=== PATIENT | female | born 1945 | race Caucasian/White ===

== ENCOUNTER → 2016-08-07 | Outpatient (CLI) | payer OTHER ==
[~2016-08-07] MED LIST: ALBU1AER9 INH; ASPEC325 PO; ATV1 PO; BUDE180I INH; CLB200 PO; EFFSR150 PO; FLUT0.15 NAE; FLUT115A INH; FRS/40 PO; LOSA100T65 PO; MELA1TAB5 PO; NRN300 PO; OXYSR10 PO; POTA10TA PO; PRED10PA3 PO; RANI300T2 PO; RXC5 PO; SYN50 PO; TRAZ100T29 PO
--- NOTE | 2016-08-07 14:08 | MAMMOGRAPHY REPORT ---
BILATERAL DIGITAL SCREENING MAMMOGRAM WITH CAD: 08/07/2016 CLINICAL HISTORY: Routine screening. Patient has no complaints. TECHNIQUE: Bilateral CC and MLO views were obtained. Current study was also evaluated with a Comput er Aided Detection (CAD) system. COMPARISON: Comparison is made to exams dated: 07/27/2015 mammogram, 11/02/2014 mammogram, 08/04/2014 mammogram, and 07/20/2014 mammogram - [facility]. BREAST COMPOSITION: The tissue of both breasts is almost entirely fatty. FINDINGS: There is stable nodularity in the anterior left breast. Benign rim calcifications bilater ally. No suspicious mass, architectural distortion or cluster of microcalcifications is seen. IMPRESSION: ACR BI-RADS CATEGORY 1: NEGATIVE There is no mammographic evidence of malignancy. A 1 year screening mammogram is recommended. The p atient will receive written notification of the results. Approximately 10% of breast cancers are not detected with mammography. A negative mammographic repor t should not delay biopsy if a clinically suggestive mass is present. Anai Squires M.D. ay/:08/07/2016 12:27:12 Agricultural Service Worker: Juana STEELE(Mahesh)(M), [facility] letter sent: Normal 1/2 BI-RADS Code: ACR BI-RADS Category 1: Negative
== END | disposition home or self-care (01) ==
LOC: C.MAMM 09:19
PROVIDERS: ATTEND Internal Medicine
DX: Z12.31 Encounter for screening mammogram for malignant neoplasm of breast (principal)

== ENCOUNTER 2017-03-15 01:42 | Emergency (ER) | payer OTHER ==
[~2017-03-15] VITALS: Ht 160 cm; Wt 80.0 kg
[2017-03-15 01:45] VITALS: TEMP 36.7; Ht 160 cm; Wt 80.0 kg
[2017-03-15 02:45] LABS: BASO % 0.3 %; BASO ABS # 0.02 K/uL (0-0.2); COMPLETE YES; EOS % 3.9 %; HEMATOCRIT 37.1 % (37-47); IG% 0.3 %; LYMPH % 23.3 %; MEAN CELL VOLUME 84.5 fL (80-100); MEAN CORPUSCULAR HEMOGLOBIN 28.2 pg (25-34); MEAN CORPUSCULAR HGB CONC 33.4 g/dl (32-36); MEAN PLATELET VOLUME 8.7 fL (7.4-10.4); MONO % 11.3 %; NEUT % 60.9 %; PLATELET COUNT 251 K/uL (130-400); RED BLOOD COUNT 4.39 M/uL (4.2-5.4); WHITE BLOOD COUNT 7.71 K/uL (4.8-10.8)
[2017-03-15 03:04] LABS: BUN/CREATININE RATIO 29.6 (10-20); CALCIUM 8.5 mg/dl (8.5-10.1); CREATININE 0.64 mg/dl (0.60-1.20); POTASSIUM 3.8 mmol/L (3.5-5.1)
[2017-03-15 03:06] LABS: ALB/GLOB RATIO 0.9 (0.9-2)
[2017-03-15] MEDS ORDERED: SODIUM CHLORIDE 0.9% 1000ML 1,000 ML IV STA (03:21)
[2017-03-15] MEDS ORDERED: KETOROLAC TROMETHAMINE 30 MG/ML VIAL IV STA (03:22)
[2017-03-15 04:50] VITALS: BP 168/90; PULSE 75; O2SAT 96
--- NOTE | 2017-03-15 04:50 | EMERGENCY ROOM VISIT NOTE ---
History Report prepared by Stuart: Elizabeth Szymanski Under the Supervision of: Dr. Anayeli Alejandra D.O. First contact with patient: 01:53 Chief Complaint: FLU LIKE SX Stated Complaint: SORETHROAT,HEADACHE,COUGH,ACHE FROM HEAD TO NECK History of Present Illness The patient is a 71 year old female who presents to the Emergency Room with complaints of worsening sore throat starting 4 days ago. She has been using Chloraseptic spray to no significant relief. The sore throat worsened over the past 4 days and she started having pain with swallowing. She is now coughing a lot. She woke up to go to the bathroom and started coughing more. She took some cough medicine with codeine 1 hour ago which she had from last year. She states that she has cough medicine on hand due to her history of sarcoidosis. She reports chills, headache, and neck pain. She states that she is normally hot and sweaty, but today she felt cold. She denies any fever or abdominal pain. She has leg swelling which is normal for her. 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 She has had pneumonia in the past, but has not had it in the past several years when she started getting the pneumonia shot. The patient used to be on prednisone, but is now on gabapentin. Source of History: patient Onset: 4 days ago Position: throat Quality: other (sore) Timing: worsening Associated Symptoms: + chills, + headache, + cough, + neck pain, No fevers, No abdominal pain Note: Pt reports pain with swallowing. Review of Systems See HPI for pertinent positives & negatives. A total of 10 systems reviewed and were otherwise negative. Past Medical & Surgical Medical Problems: (1) Anxiety (2) Asthma (3) Bicuspid aortic valve (4) Chronic steroid use (5) Depression (6) Dyslipidemia (7) GERD (gastroesophageal reflux disease) (8) HTN (hypertension) (9) Hypothyroidism (10) Kidney stones (11) Left bundle branch block (LBBB) (12) Lumbago (13) Sarcoidosis (14) TMJ (temporomandibular joint disorder) Surgical Problems: (1) H/O colonoscopy (2) H/O: hysterectomy (3) Hx of cholecystectomy (4) S/P cataract surgery (5) S/p kidney stone removal (6) S/p mediastinoscopy with biopsy (7) S/P tonsillectomy Family History Cancer FATHER (lung CA) Diabetes mellitus MOTHER FHx: gallbladder disease Heart disease FATHER MOTHER Hypertension FATHER MOTHER Lung disease Social History Smoking Status: Never Smoker Alcohol Use: none Drug Use: none Marital Status: Housing Status: lives with significant other Occupation Status: employed Current/Historical Medications Scheduled Aspirin (Aspirin), 325 MG PO BID Budesonide (Inhalation) (Pulmicort Flexhaler), 3 PUFFS INH QPM Budesonide (Inhalation) (Pulmicort Flexhaler), 2 PUFFS INH QAM Celecoxib (Celebrex), 200 MG PO BID Fluticasone Propionate (Nasal) (Flonase Allergy Relief), 2 SPRAYS LEXIE QAM Fluticasone-Salmeterol 115/21 Mcg (Advair Hfa 115/21 Mcg), 1 PUFF INH BID Furosemide (Lasix), 40 MG PO QAM Gabapentin (Gabapentin), 300 MG PO QPM Levothyroxine (Synthroid *), 0.05 MG PO QAM Lorazepam (Ativan *), 1 MG PO HS Losartan Potassium (Cozaar), 100 MG PO QAM Melatonin (Kp Melatonin), 1 TAB PO HS Oxycodone HCl (Oxycontin), 10 MG PO BIDM Potassium Chloride (K-Tabs), 10 MEQ PO QAM Prednisone (Prednisone), 10 MG PO QPM Ranitidine (Zantac), 300 MG PO QAM Trazodone Hcl (Trazodone), 100 MG PO HS Venlafaxine Ext Rel (Effexor Extended Rel *), 150 MG PO QAM Scheduled PRN Albuterol (Proair Hfa), 2 PUFFS INH Q4 PRN for SOB/Wheezing Oxycodone HCl (Oxycodone HCl), 5-10 MG PO Q4H PRN for Pain Allergies Coded Allergies: No Known Allergies (Unverified , 04/21/15) Physical Exam Vital Signs Date Time Temp Pulse Resp B/P (MAP) Pulse Ox O2 Delivery O2 Flow Rate FiO2 03/15/17 04:50 75 18 168/90 96 03/15/17 03:31 68 18 165/83 99 Room Air 03/15/17 02:43 Room Air 03/15/17 01:45 36.7 76 20 141/83 96 Room Air Physical Exam HEENT: Head - normocephalic and atraumatic Pupils are equal, round, and reactive to light. Extraocular eye muscles are intact, and sclera are anicteric. Ears - normal TMs. Nose - moist nasal mucosa without discharge. Mouth - moist buccal mucosa. Oropharynx is nonerythematous and there is no tonsillar exudate or edema noted. Posterior oropharynx with mild post nasal drip. Neck: Supple; anterior cervical lymphadenopathy, no JVD, nuchal rigidity. Heart: Regular rate and rhythm. There is a normal S1 and S2 with no murmurs, clicks, or gallops appreciated. Lungs: Clear to auscultation bilaterally with no wheezes, rales, or rhonchi. Abdomen: Soft, completely nontender, nondistended, with good bowel sounds. There are no palpable pulsatile masses or hepatosplenomegaly. There is no guarding, rigidity, or rebound noted. Extremities: No evidence of cyanosis, clubbing, or edema. There are easily palpable peripheral pulses. Skin: warm and dry with good turgor and no rashes. Medical Decision & Procedures ER Provider Diagnostic Interpretation: X-ray results as stated below per interpretation by me: Chest X-ray: No pulmonary infiltrates or pleural effusions. Laboratory Results 03/15/17 02:25 Red Blood Count 4.39, Mean Corpuscular Volume 84.5, Mean Corpuscular Hemoglobin 28.2, Mean Corpuscular Hemoglobin Concent 33.4, Mean Platelet Volume 8.7, Neutrophils (%) (Auto) 60.9, Lymphocytes (%) (Auto) 23.3, Monocytes (%) (Auto) 11.3, Eosinophils (%) (Auto) 3.9, Basophils (%) (Auto) 0.3, Neutrophils # (Auto ) 4.70, Lymphocytes # (Auto) 1.80, Monocytes # (Auto) 0.87, Eosinophils # (Auto ) 0.30, Basophils # (Auto) 0.02 03/15/17 02:25 Test 03/15/17 02:25 03/15/17 02:33 White Blood Count 7.71 K/uL (4.8-10.8) Red Blood Count 4.39 M/uL (4.2-5.4) Hemoglobin 12.4 g/dL (12.0-16.0) Hematocrit 37.1 % (37-47) Mean Corpuscular Volume 84.5 fL (80-100) Mean Corpuscular Hemoglobin 28.2 pg (25-34) Mean Corpuscular Hemoglobin Concent 33.4 g/dl (32-36) Platelet Count 251 K/uL (130-400) Mean Platelet Volume 8.7 fL (7.4-10.4) Neutrophils (%) (Auto) 60.9 % Lymphocytes (%) (Auto) 23.3 % Monocytes (%) (Auto) 11.3 % Eosinophils (%) (Auto) 3.9 % Basophils (%) (Auto) 0.3 % Neutrophils # (Auto) 4.70 K/uL (1.4-6.5) Lymphocytes # (Auto) 1.80 K/uL (1.2-3.4) Monocytes # (Auto) 0.87 K/uL (0.11-0.59) Eosinophils # (Auto) 0.30 K/uL (0-0.5) Basophils # (Auto) 0.02 K/uL (0-0.2) RDW Standard Deviation 41.7 fL (36.4-46.3) RDW Coefficient of Variation 13.7 % (11.5-14.5) Immature Granulocyte % (Auto) 0.3 % Immature Granulocyte # (Auto) 0.02 K/uL (0.00-0.02) Anion Gap 5.0 mmol/L (3-11) Est Creatinine Clear Calc Drug Dose 81.9 ml/min Estimated GFR () 104.8 Estimated GFR (Non- 90.4 BUN/Creatinine Ratio 29.6 (10-20) Calcium Level 8.5 mg/dl (8.5-10.1) Total Bilirubin 0.3 mg/dl (0.2-1) Aspartate Amino Transf (AST/SGOT) 15 U/L (15-37) Alanine Aminotransferase (ALT/SGPT) 19 U/L (12-78) Alkaline Phosphatase 104 U/L (45-117) Total Protein 6.5 gm/dl (6.4-8.2) Albumin 3.0 gm/dl (3.4-5.0) Globulin 3.5 gm/dl (2.5-4.0) Albumin/Globulin Ratio 0.9 (0.9-2) Bedside Lactic Acid Venous 1.18 mmol/L (0.90-1.70) Laboratory results per my review. Medications Administered Medications (Trade) Dose Ordered Sig/Anali Route Start Time Stop Time Status Last Admin Dose Admin Sodium Chloride 1,000 ml @ 999 mls/hr Q1H1M STAT IV 03/15/17 03:21 03/15/17 04:21 DC 03/15/17 03:30 999 MLS/HR Ketorolac Tromethamine (Toradol Inj) 30 mg NOW STAT IV 03/15/17 03:22 03/15/17 03:23 DC 03/15/17 03:30 30 MG Procedure Medications: NSS 1000 ml @ 999 mls/hr IV, Toradol Inj 30 mg IV. ED Course 0159: The patient was evaluated in room B2. A complete history and physical examination were performed. Nursing notes and previous electronic medical records were reviewed. IV lock was established and labs were drawn as above. 0321: NSS 1000 ml @ 999 mls/hr IV. 0322: Toradol Inj 30 mg IV. The patient had chest x-ray as described above. 0352: I reevaluated the patient. She has just received her medications and fluids. She is feeling OK. 0437: Upon reevaluation, the patient feels much better. She would like to go home. I discussed findings and results with her. She verbalized agreement of the treatment plan. She was discharged home. Medical Decision The patient is a 71 year old female who presents to the ED with sore throat. Differential diagnosis includes sepsis, pharyngitis, pneumonia, bronchitis, URI , laryngitis. Labs: no leukocytosis, stable H&H, BUN 19, creatinine 0.6, LFTs normal, glucose 93, lactic acid 1.18. This is a 71-year-old female patient with a history of sarcoidosis who presents to the emergency department with sore throat and cough. O2 saturations were normal. Chest x-ray was unremarkable. Physical exam of the oropharynx was essentially unremarkable. She had significant relief of the discomfort with IV Toradol and IV normal saline solution. We spent some time talking about the possibility of a bacterial infection within the throat or lungs in conjunction with her sarcoid. She was instructed to pick was attention to her symptoms of the next 2448 hours. She would require close follow-up if she developed a fever. Medication Reconcilliation Current Medication List: was personally reviewed by me Blood Pressure Screening Patient's blood pressure: Elevated blood pressure Blood pressure disposition: Elevated BP felt to be situational Impression Primary Impression: Viral pharyngitis Additional Impression: Bronchitis Scribe Attestation The scribe's documentation has been prepared under my direction and personally reviewed by me in its entirety. I confirm that the note above accurately reflects all work, treatment, procedures, and medical decision making performed by me. Departure Information Dispostion Home / Self-Care Referrals Rodrigue Dowling D.O. (PCP) Forms HOME CARE DOCUMENTATION FORM, IMPORTANT VISIT INFORMATION Patient Instructions Bronchitis Acute, ED Pharyngitis Viral, My [facility] Additional Instructions Rest. Take plenty of clear liquids Take motrin - 600mg every 6 hours with food for pain Take cough med as directed Problem Qualifiers
--- NOTE | 2017-03-15 06:24 | DIAGNOSTIC IMAGING REPORT ---
CHEST 2 VIEWS ROUTINE HISTORY: 71 years-old Female acute cough with sore throat. Clinical concern for possible pneumonia. COMPARISON: Portable chest radiograph 04/21/2015 TECHNIQUE: Frontal and lateral views of the chest FINDINGS: Cardiac silhouette is upper limits of normal. There is no pneumothorax or pleural effusion. Mild biapical pleural-parenchymal scarring is noted. Patchy right perihilar and right upper lobe reticular nodular opacities are present without lobar airspace consolidation. There is no overt pulmonary edema. The bones are grossly intact. There is atherosclerosis of the aorta. IMPRESSION: Subsegmental right perihilar and right upper lobe reticular nodular opacities are suspicious for pneumonitis. The above report was generated using voice recognition software. It may contain grammatical, syntax or spelling errors. Electronically signed by: John Geller M.D. 03/15/2017 6:23 AM Dictated Date/Time: 03/15/2017 6:20 AM
== END 2017-03-15 04:52 | disposition home or self-care (01) ==
LOC: C.EDB 01:43
DX: J02.8 Acute pharyngitis due to other specified organisms (principal); J40 Bronchitis, not specified as acute or chronic; F41.9 Anxiety disorder, unspecified; J45.909 Unspecified asthma, uncomplicated; Q23.1 Congenital insufficiency of aortic valve; F32.9 Major depressive disorder, single episode, unspecified; E78.5 Hyperlipidemia, unspecified; K21.9 Gastro-esophageal reflux disease without esophagitis; I10 Essential (primary) hypertension; E03.9 Hypothyroidism, unspecified; M26.609 Unspecified temporomandibular joint disorder, unspecified side; Z83.3 Family history of diabetes mellitus; Z82.49 Family history of ischemic heart disease and other diseases of the circulatory system; Z79.82 Long term (current) use of aspirin

== ENCOUNTER → 2017-08-11 | Outpatient (CLI) | payer OTHER ==
--- NOTE | 2017-08-12 14:41 | MAMMOGRAPHY REPORT ---
BILATERAL DIGITAL SCREENING MAMMOGRAM TOMOSYNTHESIS WITH CAD: 08/11/2017 CLINICAL HISTORY: Routine screening. Patient has no complaints. TECHNIQUE: Breast tomosynthesis in addition to standard 2D mammography was performed. Current study was also evaluated with a Computer Aided Detection (CAD) system. COMPARISON: Comparison is made to exams dated: 08/07/2016 mammogram, 07/27/2015 mammogram, 11/02/2014 m ammogram, 07/20/2014 mammogram, 01/09/2011 mammogram, and 09/20/2009 mammogram - [facility]. BREAST COMPOSITION: The tissue of both breasts is almost entirely fatty. FINDINGS: No suspicious masses, calcifications, or areas of architectural distortion are noted in ei ther breast. There has been no significant interval change compared to prior exams. IMPRESSION: ACR BI-RADS CATEGORY 1: NEGATIVE There is no mammographic evidence of malignancy. A 1 year screening mammogram is recommended. The pa tient will receive written notification of the results. Approximately 10% of breast cancers are not detected with mammography. A negative mammographic report should not delay biopsy if a clinically suggestive mass is present. Valentina Whitlock M.D. /:08/11/2017 15:54:58 Fire Crew Specialist: Leanne STEELE(Mahesh)(Srinivas), [facility] letter sent: Normal 1/2 BI-RADS Code: ACR BI-RADS Category 1: Negative
== END | disposition home or self-care (01) ==
LOC: C.MAMM 15:26
PROVIDERS: ATTEND Internal Medicine
DX: Z12.31 Encounter for screening mammogram for malignant neoplasm of breast (principal)